=== PATIENT | male | born 1945 | race Caucasian/White ===

== ENCOUNTER 2016-11-19 11:45 | Inpatient (IN) | payer OTHER ==
[~2016-11-19] VITALS: Ht 180.3 cm; Wt 97.8 kg
[2016-11-19] VITALS (26 sets, daily range): BP systolic 89–140; BP diastolic 60–93
--- NOTE | ~2016-11-19 | HC ---
[facility] [place] [address] CONSULTATION Name: CHU HOUGH Room #: 302-P ADM IN M.R.#: [id number] Admission: 11/19/16 Attend Phys: Delta Izaguirre MD Discharge: Date of : 49 Report #: [id number] THIS REPORT FOR: //name// CC: Mervat Delgado DATE OF SERVICE: 11/20/2016 REASON FOR CONSULTATION: Elevated creatinine. HISTORY OF PRESENT ILLNESS: The patient arrives with scanty medical records from a rehabilitation facility and healthcare center where I believe he is a permanent resident. He had a syncopal episode where he fell out of his wheelchair, was found to be hypotensive, taken to the Emergency Room here where he apparently had evidence of UTI and hypotension, was treated in the Emergency Room and admitted to ICU. He gives very little history, although he is awake. PAST MEDICAL HISTORY: Apparently, he had some sort of closed head injury with chronic cognitive disorder rather severe, requiring chronic alf care. According to the scanty records we have, he has chronic lung disease substituted on oxygen, hypertension, type 2 diabetes and had some sort of a bullous skin rash requiring CellCept. HOME MEDICATIONS: Include aspirin 81 mg daily, bupropion 300 mg daily, CellCept 500 mg daily, Depakote 125 mg at bedtime, famotidine 20 mg at bedtime, furosemide 40 mg a.m. and 20 mg p.m., metoprolol succinate 25 mg daily, combination memantine donepezil pill, Mylanta, simvastatin 10 mg daily. According to the patient, he does have an indwelling Juares catheter, but I am not sure how accurate that is and according to what I can see, it looks like he has been in this facility for about 7 months. SOCIAL HISTORY: Otherwise unobtainable. REVIEW OF SYSTEMS: Otherwise unobtainable. FAMILY HISTORY: Otherwise unobtainable. PHYSICAL EXAMINATION: GENERAL: The patient is awake, oriented only to person. SKIN: Shows very erythematous circumferential area of skin which is tender above the ankle and below the knee bilaterally. SKELETAL: Shows him to be well developed, well nourished. HEENT: Extraocular movements are full. Vision appears to be intact, corrective lenses. Hearing appears to be intact. Mucous membranes dry. NECK: Supple. Neck veins are flat. CHEST: Shows some fine crackles. [address] [address] CONSULTATION Name: CHU HOUGH Room #: 302-P [facility] IN M.R.#: [id number] Admission: 11/19/16 Attend Phys: Delta Izaguirre MD Discharge: Date of : 49 Report #: [id number] HEART: Regular. ABDOMEN: Soft and completely nontender, without bruits, masses or organomegaly. EXTREMITIES: Show very trace peripheral edema with the erythematous area. NEUROLOGIC: Shows him to be oriented only to person and to not really be able to answer any other questions with meaningful data. LABORATORY DATA: Sodium 133, potassium 3.4, chloride 98, bicarbonate 21, creatinine 2.9, BUN 69, albumin only 2.2. BNP 61,386. Hemoglobin is 11.8, white count 19.2. He had no bands on differential, platelets 205. Urinalysis showed white cells, red cells and bacteria and 2+ protein. ASSESSMENT AND PLAN: 1. Elevated creatinine. I am going on the assumption if this is all acute possibly related to his urinary tract infection and low blood pressures that IV fluids will need to be maintained. I will check urinary electrolytes for completeness and of course, we will treat his urinary tract infection. 2. Staghorn calculi. He has bilateral staghorn calculi. I suspect he has had longtime indwelling Juares and dehydration and Urology consult will be indicated. Obviously, the urinary tract infection will not be able to be cured until some of these problems are resolved. It certainly could be contributed to his elevated creatinine as well. 3. 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 4. History of hypertension. 5. History of glucose intolerance. 6. History of bullous rash on mycophenolate which will be stopped. <ELECTRONICALLY SIGNED> By: Reyes Castillo MD 11/27/16 0735 0801 1329 Abdiel Negro MD /nt
--- NOTE | ~2016-11-19 | 2DMMODE ---
[facility] [place] [address] [place] [address] 2 D/M-MODE ECHOCARDIOGRAM Name: CHU HOUGH Room #: 302-P ADM IN .R.#: [id number] Admission: 11/19/16 Attend Phys: Duncan Cohen Discharge: Date of : 49 Date of Service: 11/21/16 1253 Report #: [id number] THIS REPORT FOR: //name// APPROVED REPORT Study performed: 11/21/2016 07:37:59 EXAM: Limited 2D, Doppler, and color-flow Echocardiogram Patient Location: Bedside Room #: 242 Blood Pressure: 115/78 mmHg HR: 110 bpm Other Information Study Quality: Poor/undiagnostic Technically limited study due to body habitus, very limited window availability. Indications Congestive Heart Failure Syncope Hx: CHF, DM, HLP Echo Enhancing Agent Indication: Endocardial border delineation Agent/Amount Used: Definity cc Aortic Valve AoV Peak Everette.: 1.37 m/s AO Peak Gr.: 7.48 mmHg Mitral Valve MV Decel. Time: 143.74 ms MV E Max Everette.: 1.12 m/s Left Ventricle Left ventricle is grossly normal size. Regional wall motion is undiagnostic. Suboptimal images. With use of Definity, LV function appears grossly normal This study is not technically sufficient to allow evaluation of the LV diastolic function. Right Ventricle Right ventricle is not well visualized. Right ventricular systolic [facility] [address] [place] [address] 2 D/M-MODE ECHOCARDIOGRAM Name: CHU HOUGH Room #: 302-P ADM IN M.R.#: [id number] Admission: 11/19/16 Attend Phys: Duncan Cohen Discharge: Date of : 49 Date of Service: 11/21/16 1253 Report #: [id number] function could not be assessed. Atria not imaged Right atrium is not well visualized. Aortic Valve The aortic valve is not well visualized. There is no aortic valvular stenosis suspected. Mitral Valve The mitral valve appears grossly normal in structure. Trace mitral regurgitation. Tricuspid Valve Tricuspid valve is not well visualized. Pulmonic Valve Pulmonic valve is not well visualized. Great Vessels Aortic root is not well visualized. The inferior vena cava is not well visualized. Pericardium Probably no effusion. Not well imaged. <Conclusion> Almost uninterpretable study. Suboptimal images. With use of Definity, LV function appears grossly normal Right ventricle is not well visualized. There is no aortic valvular stenosis suspected. The mitral valve appears grossly normal in structure. Probably no effusion. <ELECTRONICALLY SIGNED> By: Yair Cano MD, [facility] 11/21/16 1253 1253 1253 Yair Cano MD, FACC /INF
--- NOTE | ~2016-11-19 | EKG ---
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
--- NOTE | ~2016-11-19 | HC ---
[facility] [place] [address] [place] [address] CONSULTATION Name: CHU HOUGH Room #: 242-P ADM IN M.R.#: [id number] Admission: 11/19/16 Attend Phys: Venkatesh Delgado MD Discharge: Date of : 49 Report #: [id number] THIS REPORT FOR: //name// CC: Mervat Delgado REASON FOR CONSULTATION: I was asked to evaluate concerning septic shock. HISTORY OF PRESENT ILLNESS: The patient is a 70-year-old shelter resident who had a syncopal episode where he fell out of his wheelchair lacerating his left face, chest, and arms. He was brought into the emergency room, found to be febrile, and hypotensive. He received about 3 liters of fluid and placed on Levophed. He was given Zosyn and Levaquin in the emergency room. He was placed on 2 liters of oxygen per nasal cannula. The patient was unable to give any details of his history. ALLERGIES: SULFA. MEDICATIONS: As noted on his MAR, now on vancomycin and Zosyn. PAST MEDICAL HISTORY: Congestive heart failure, hyperlipidemia, gastroesophageal reflux, diabetes, intracranial injury with cognitive defects, anemia, and dyspnea. FAMILY HISTORY: Noncontributory. SOCIAL HISTORY: He is a nonsmoker, no significant alcohol intake. REVIEW OF SYSTEMS: The patient reports back pain. No nausea or vomiting. No diarrhea. He has an indwelling Juares catheter. He has a right upper extremity last evening. He has had no cough or sputum production. PHYSICAL EXAMINATION: VITAL SIGNS: Temperature 99.6, blood pressure 87/71 with a MAP of 77, CVP of 13. GENERAL: He was alert and cooperative. He was unable to rollover in bed on his own, I had to push him over and he resist some. He had laceration to his left forehead. SKIN: Otherwise, unremarkable. LYMPH: Unremarkable. HEENT: Unremarkable. LUNGS: Crackles heard in the bases bilaterally. HEART: Regular, without murmur. ABDOMEN: Firm in the lower abdomen. No appreciable masses or hepatosplenomegaly. GENITOURINARY: External genitalia unremarkable with indwelling Juares catheter. BACK: He had CVA tenderness and lumbar spine tenderness bilateral. [address] [address] CONSULTATION Name: CHU HOUGH Room #: 242-P [facility] IN .R.#: [id number] Admission: 11/19/16 Attend Phys: Venkatesh Delgado MD Discharge: Date of : 49 Report #: [id number] EXTREMITIES: Unremarkable. NEUROLOGIC: Nonfocal. LABORATORY STUDIES: Sodium 133, potassium 3.4, bicarbonate 21, and creatinine 2.9. Liver function tests normal. Albumin at 2.2. Hemoglobin 11.8, white count of 19.2, platelet count 205,000, 87% segs, 0% bands. Procalcitonin was 2.7. Urinalysis positive for wbc's, rbc's and bacteria. Urine culture and blood cultures showing Gram-negative bacilli. CT scan of the abdomen showed some basilar infiltrates, fecal impaction, bladder stone, bilateral staghorn calculi, greatest on the right with evidence of some upper pole pyelonephritis changes. He did have some mild ureteral dilatation and ureteral thickening. IMPRESSION: A 70-year-old shelter resident with septic shock from right pyelonephritis. Question whether he passed the stone and had acute obstruction. He does have staghorn calculi. PLAN: Recommend continuing Gram-negative coverage with Zosyn. Continue with fluids and adjust his antibiotics for his acute renal failure. He will continue with sepsis management in the intensive care unit today. <ELECTRONICALLY SIGNED> By: Ángel Grossman MD 11/21/16 0851 0820 1329 Ángel Grossman MD /nt
[2016-11-19 12:13] LABS: HEMOGLOBIN 12.7 gm/dL (14.0-18.0); MCH 27.4 pg (26.0-34.0); MCHC 32.5 g/dL (28.0-37.0); MCV 84.4 fL (80.0-100.0); PLATELET COUNT 236 thou/uL (150-400); RBC 4.62 mil/uL (4.50-6.00); RDW 18.8 % (10.5-14.5); WBC 18.5 thou/uL (4.0-11.0)
[2016-11-19 12:24] LABS: MANUAL DIFF YES
[2016-11-19 12:25] LABS: ANION GAP 12 mmol/L (7-16); BUN 74 mg/dL (7-18); CALCIUM 8.5 mg/dL (8.5-10.1); CHLORIDE 93 mmol/L (98-107); CO2 22 mmol/L (21-32); CREATININE 3.2 mg/dL (0.7-1.3); GLUCOSE 107 mg/dL (74-106); POTASSIUM 4.1 mmol/L (3.5-5.1); SODIUM 127 mmol/L (136-145)
[2016-11-19 12:26] LABS: ABG SAMPLE TYPE ARTERIAL; BE(vivo) -5.2 mmol/L (-2 to +3); HCO3 17.9 mmol/L (22.0-26.0); LACTATE 1.75 mmol/L (0.5-2.0); O2(CT) 18.3 mL/dL (15.0-23.0); O2Hb 95.7 % (92.0-98.0); PCO2 28.5 mmHg (35.0-45.0); STICK SITE R.RADIAL; pH 7.416 (7.360-7.450); sO2 97.8 % (92.0-98.0); tCO2 18.8 mmol/L (24.0-30.0)
[2016-11-19 12:27] LABS: INR 1.2; PROTIME 12.9 Seconds (9.3-11.4)
[2016-11-19 12:37] LABS: TROPONIN-I < 0.04 ng/mL (<0.04-0.07)
[2016-11-19 12:41] LABS: ABSOLUTE NEUTROPHILS 16.1 thou/uL (1.4-8.2); ANISOCYTOSIS 2+; TOTAL CELL COUNT 100
[2016-11-19 13:05] LABS: NT-PRO BRAIN NAT PEPTIDE 61386 pg/mL (<300)
[2016-11-19] MEDS ORDERED: ASPIR 8181 MG PO (13:15)
[2016-11-19] MEDS ORDERED: BISACODYL SUPP10 MG RECTAL (13:15)
[2016-11-19] MEDS ORDERED: ARTIFICIAL TEA1 EACH OP (13:15)
[2016-11-19] MEDS ORDERED: A+D ZINC OXIDE113 GM TP (13:15)
[2016-11-19] MEDS ORDERED: CELLCEPT500 MG PO (13:16)
[2016-11-19] MEDS ORDERED: WELLBUTRIN XL300 MG PO (13:16)
[2016-11-19] MEDS ORDERED: CERAVE237 ML TP (13:16)
[2016-11-19 13:17] LABS: URINE BILIRUBIN NEGATIVE (Negative); URINE BLOOD 3+ (Negative); URINE COLOR YELLOW; URINE GLUCOSE-RANDOM* NEGATIVE (Negative); URINE KETONES NEGATIVE (Negative); URINE NITRITE NEGATIVE (Negative); URINE PROTEIN (DIPSTICK) 2+ (Negative); URINE SPECIFIC GRAVITY 1.015 (1.003-1.035)
[2016-11-19] MEDS ORDERED: PEPCID20 MG PO (13:17)
[2016-11-19] MEDS ORDERED: NEURONTIN 300300 M1 PO (13:17)
[2016-11-19] MEDS ORDERED: LASIX 40 MG TAB40 M2 PO (13:17)
[2016-11-19] MEDS ORDERED: DEPAKOTE 250MG250 M1 PO (13:17)
[2016-11-19] MEDS ORDERED: TOPROL XL25 MG PO (13:17)
[2016-11-19] MEDS ORDERED: NAMZARIC 14 MG1 EACH PO (13:18)
[2016-11-19] MEDS ORDERED: ROBITUSSIN100 MG/53 PO (13:18)
[2016-11-19] MEDS ORDERED: ZOCOR20 MG PO (13:18)
[2016-11-19] MEDS ORDERED: PAIN RELIEF325 MG PO (13:19)
[2016-11-19] MEDS ORDERED: ULTRAM50 MG PO (13:19)
[2016-11-19] MEDS ORDERED: VOLTAREN GEL 1100 G2 TOP (13:19)
[2016-11-19 13:37] LABS: BACTERIA >30 Many /HPF (None Seen); CASTS None Seen /LPF (None Seen); CRYSTALS None Seen /LPF (None Seen); SQUAMOUS None Seen /LPF (0-3); URINE RBC >20 Many /HPF (0-2); URINE WBC >25 Many /HPF (0-5)
[2016-11-19 19:47] LABS: CALCIUM 7.9 mg/dL (8.5-10.1); POTASSIUM 3.6 mmol/L (3.5-5.1)
[2016-11-20] VITALS (49 sets, daily range): BP systolic 81–117; BP diastolic 53–81
[2016-11-20 05:01] LABS: HEMATOCRIT 36.5 % (42.0-52.0); HEMOGLOBIN 11.8 gm/dL (14.0-18.0); MCH 27.2 pg (26.0-34.0); MCHC 32.2 g/dL (28.0-37.0); MCV 84.3 fL (80.0-100.0); RBC 4.33 mil/uL (4.50-6.00); RDW 18.3 % (10.5-14.5); WBC 19.2 thou/uL (4.0-11.0)
[2016-11-20 05:15] LABS: ALBUMIN 2.2 g/dL (3.4-5.0); CALCIUM 8.8 mg/dL (8.5-10.1); CREATININE 2.9 mg/dL (0.7-1.3); POTASSIUM 3.4 mmol/L (3.5-5.1); TOTAL BILIRUBIN 1.1 mg/dL (<0.1-1.0); TOTAL PROTEIN 6.5 g/dL (6.4-8.2)
[2016-11-20 14:43] LABS: ALBUMIN 2.2 g/dL (3.4-5.0); CALCIUM 8.6 mg/dL (8.5-10.1); CREATININE 2.9 mg/dL (0.7-1.3); PHOSPHORUS 4.5 mg/dL (2.5-4.9); POTASSIUM 3.8 mmol/L (3.5-5.1)
[2016-11-21] VITALS (9 sets, daily range): BP systolic 102–132; BP diastolic 77–89
[2016-11-21 05:40] LABS: ALBUMIN 2.2 g/dL (3.4-5.0); CALCIUM 8.9 mg/dL (8.5-10.1); CREATININE 2.8 mg/dL (0.7-1.3); POTASSIUM 3.3 mmol/L (3.5-5.1)
[2016-11-22 04:09] VITALS: BP 121/75
[2016-11-22 05:13] LABS: HEMATOCRIT 38.4 % (42.0-52.0); HEMOGLOBIN 12.4 gm/dL (14.0-18.0); MCH 27.8 pg (26.0-34.0); MCHC 32.4 g/dL (28.0-37.0); MCV 85.7 fL (80.0-100.0); PLATELET COUNT 224 thou/uL (150-400); RBC 4.48 mil/uL (4.50-6.00); RDW 19.4 % (10.5-14.5); WBC 10.3 thou/uL (4.0-11.0)
[2016-11-22 05:17] LABS: MANUAL DIFF YES
[2016-11-22 05:40] LABS: ALBUMIN 2.4 g/dL (3.4-5.0); CALCIUM 8.9 mg/dL (8.5-10.1); CREATININE 2.9 mg/dL (0.7-1.3); POTASSIUM 3.7 mmol/L (3.5-5.1)
[2016-11-22 06:25] LABS: ANISOCYTOSIS 2+; MACROCYTES 1+; MICROCYTES 1+; TOTAL CELL COUNT 100
[2016-11-22 06:26] LABS: POLYCHROMASIA 1+; TOXIC GRANULATION 1+
[2016-11-22 08:38] VITALS: BP 123/87
[2016-11-22 16:52] VITALS: BP 112/86
[2016-11-22 20:00] VITALS: BP 123/83
[2016-11-23 05:30] VITALS: BP 101/71
[2016-11-23 05:48] LABS: BASOPHILS 0.7 % (0.0-2.0); EOSINOPHILS 8.1 % (0.0-3.0); HEMATOCRIT 39.8 % (42.0-52.0); HEMOGLOBIN 12.6 gm/dL (14.0-18.0); LYMPHOCYTES 13.1 % (24.0-44.0); MCH 27.7 pg (26.0-34.0); MCHC 31.5 g/dL (28.0-37.0); MCV 87.9 fL (80.0-100.0); MONOCYTES 7.8 % (1.0-8.0); PLATELET COUNT 197 thou/uL (150-400); POLYS 70.3 % (36.0-66.0); RBC 4.53 mil/uL (4.50-6.00); RDW 19.5 % (10.5-14.5); WBC 9.9 thou/uL (4.0-11.0)
[2016-11-23 05:53] LABS: MANUAL DIFF NO
[2016-11-23 05:59] LABS: CALCIUM 8.5 mg/dL (8.5-10.1); CREATININE 2.8 mg/dL (0.7-1.3); POTASSIUM 3.4 mmol/L (3.5-5.1)
[2016-11-23 10:10] VITALS: BP 102/66
[2016-11-23 11:40] VITALS: BP 103/68
[2016-11-23 16:30] VITALS: BP 104/67
[2016-11-23 19:40] VITALS: BP 94/68
[2016-11-24 03:55] VITALS: BP 101/60
[2016-11-24 07:33] VITALS: BP 82/57
[2016-11-24 07:41] LABS: ABSOLUTE NEUTROPHILS 6.8 thou/uL (1.4-8.2); BASOPHILS 0.5 % (0.0-2.0); EOSINOPHILS 9.5 % (0.0-3.0); HEMOGLOBIN 12.4 gm/dL (14.0-18.0); LYMPHOCYTES 15.1 % (24.0-44.0); MCH 27.5 pg (26.0-34.0); MCV 88.9 fL (80.0-100.0); MONOCYTES 8.1 % (1.0-8.0); PLATELET COUNT 184 thou/uL (150-400); POLYS 66.8 % (36.0-66.0); RDW 19.1 % (10.5-14.5); WBC 10.2 thou/uL (4.0-11.0)
[2016-11-24 07:44] LABS: MANUAL DIFF NO
[2016-11-24 07:48] LABS: CALCIUM 8.3 mg/dL (8.5-10.1); POTASSIUM 3.6 mmol/L (3.5-5.1)
[2016-11-24 15:00] VITALS: BP 90/56
[2016-11-24 20:24] VITALS: BP 77/54
[2016-11-24 21:00] VITALS: BP 96/64
[2016-11-25] VITALS (8 sets, daily range): BP systolic 73–91; BP diastolic 50–61
[2016-11-25 07:43] LABS: ALBUMIN 1.9 g/dL (3.4-5.0); CREATININE 3.3 mg/dL (0.7-1.3); PHOSPHORUS 5.6 mg/dL (2.5-4.9); POTASSIUM 3.6 mmol/L (3.5-5.1)
[2016-11-25 15:51] LABS: HEMATOCRIT 31.2 % (42.0-52.0); MCH 28.2 pg (26.0-34.0); MCHC 31.7 g/dL (28.0-37.0); MCV 88.9 fL (80.0-100.0); RBC 3.51 mil/uL (4.50-6.00); RDW 19.1 % (10.5-14.5); WBC 9.2 thou/uL (4.0-11.0)
[2016-11-25 15:59] LABS: HEMOGLOBIN 9.9 gm/dL (14.0-18.0)
[2016-11-25 22:55] LABS: HEMATOCRIT 39.9 % (42.0-52.0); MCH 27.2 pg (26.0-34.0); MCHC 30.5 g/dL (28.0-37.0); RBC 4.48 mil/uL (4.50-6.00); RDW 19.3 % (10.5-14.5); WBC 11.1 thou/uL (4.0-11.0)
[2016-11-25 23:00] LABS: HEMOGLOBIN 12.2 gm/dL (14.0-18.0)
[2016-11-26 04:00] VITALS: BP 87/61
[2016-11-26 05:24] LABS: HEMATOCRIT 38.3 % (42.0-52.0); HEMOGLOBIN 11.9 gm/dL (14.0-18.0); MCH 27.5 pg (26.0-34.0); MCV 88.9 fL (80.0-100.0); RBC 4.31 mil/uL (4.50-6.00); RDW 18.9 % (10.5-14.5); WBC 10.4 thou/uL (4.0-11.0)
[2016-11-26 05:40] LABS: CALCIUM 7.8 mg/dL (8.5-10.1); CREATININE 3.5 mg/dL (0.7-1.3); POTASSIUM 3.7 mmol/L (3.5-5.1)
[2016-11-26 07:30] VITALS: BP 92/57
[2016-11-26 12:00] VITALS: BP 98/71
[2016-11-26 16:30] VITALS: BP 91/61
[2016-11-26 19:20] VITALS: BP 97/62
[2016-11-27 03:25] VITALS: BP 101/61
[2016-11-27 07:30] VITALS: BP 102/71
[2016-11-27 07:56] LABS: HEMATOCRIT 39.2 % (42.0-52.0); HEMOGLOBIN 12.2 gm/dL (14.0-18.0); MCH 27.4 pg (26.0-34.0); MCHC 31.2 g/dL (28.0-37.0); RBC 4.45 mil/uL (4.50-6.00); RDW 19.2 % (10.5-14.5); WBC 8.1 thou/uL (4.0-11.0)
[2016-11-27 08:08] LABS: CALCIUM 7.9 mg/dL (8.5-10.1); CREATININE 3.6 mg/dL (0.7-1.3); PHOSPHORUS 6.3 mg/dL (2.5-4.9); POTASSIUM 3.8 mmol/L (3.5-5.1)
[2016-11-27 15:30] VITALS: BP 95/61
[2016-11-27 20:00] VITALS: BP 95/61; BP 96/65
[2016-11-28 04:00] VITALS: BP 95/59
[2016-11-28 06:42] LABS: HEMATOCRIT 34.4 % (42.0-52.0); HEMOGLOBIN 10.9 gm/dL (14.0-18.0); MCH 27.9 pg (26.0-34.0); MCHC 31.7 g/dL (28.0-37.0); MCV 88.1 fL (80.0-100.0); RBC 3.9 mil/uL (4.50-6.00); RDW 18.6 % (10.5-14.5); WBC 8.1 thou/uL (4.0-11.0)
[2016-11-28 07:09] LABS: ALBUMIN 1.9 g/dL (3.4-5.0); CALCIUM 7.7 mg/dL (8.5-10.1); CREATININE 3.8 mg/dL (0.7-1.3); PHOSPHORUS 5.8 mg/dL (2.5-4.9)
[2016-11-28 07:23] VITALS: BP 102/67
[2016-11-28 11:45] LABS: URINE BILIRUBIN NEGATIVE (Negative); URINE BLOOD 1+ (Negative); URINE COLOR YELLOW; URINE GLUCOSE-RANDOM* NEGATIVE (Negative); URINE KETONES NEGATIVE (Negative); URINE LEUKOCYTES-REFLEX 2+ (Negative); URINE PROTEIN (DIPSTICK) TRACE (Negative); URINE UROBILINOGEN 0.2 E.U./dl (0.2-1.0)
[2016-11-28 12:13] LABS: SQUAMOUS None Seen /LPF (0-3)
[2016-11-28 12:14] LABS: CASTS None Seen /LPF (None Seen); CRYSTALS None Seen /LPF (None Seen); URINE RBC 3-10 Few /HPF (0-2)
[2016-11-28 12:15] LABS: URINE WBC-REFLEX >25 Many /HPF (0-5)
[2016-11-28 16:45] VITALS: BP 119/72
[2016-11-28 20:00] VITALS: BP 113/76
[2016-11-28 22:57] VITALS: BP 113/76
[2016-11-29 03:30] VITALS: BP 92/69
[2016-11-29 05:26] LABS: CALCIUM 7.8 mg/dL (8.5-10.1); CREATININE 3.5 mg/dL (0.7-1.3); PHOSPHORUS 4.9 mg/dL (2.5-4.9); POTASSIUM 4.2 mmol/L (3.5-5.1)
[2016-11-29 07:35] VITALS: BP 115/79
[2016-11-29 08:00] VITALS: BP 115/79
[2016-11-29] MEDS ORDERED: DUONEB 2.5-0.5 M3 ML INH (12:26)
[2016-11-29] MEDS ORDERED: AUGMENTIN 875875 MG PO (12:27)
[2016-11-29] MEDS ORDERED: RENVELA800 MG PO (12:27)
== END 2016-11-29 16:44 | DRG 871 ==
LOC: ER 11:45 → ICU 15:12 → 3N 15:12 → EROBS 15:12 → ICU 17:22 → 3N 11-21 12:41
PROVIDERS: Emergency Medicine; Hospitalist; Internal Medicine Endocrinology, Diabetes & Metabolism; Internal Medicine Nephrology; Nurse Practitioner; Specialist
PROC: 02HV33Z Insertion of Infusion Device into Superior Vena Cava, Percutaneous Approach (ICD-10-PCS; principal; 2016-11-19)
PROC: B548ZZA Ultrasonography of Superior Vena Cava, Guidance (ICD-10-PCS; principal; 2016-11-19)
DX: A41.9 Sepsis, unspecified organism (principal); R65.21 Severe sepsis with septic shock; N17.9 Acute kidney failure, unspecified; E87.1 Hypo-osmolality and hyponatremia; N39.0 Urinary tract infection, site not specified; I13.0 Hypertensive heart and chronic kidney disease with heart failure and stage 1 through stage 4 chronic kidney disease, or unspecified chronic kidney disease; E44.0 Moderate protein-calorie malnutrition; K21.9 Gastro-esophageal reflux disease without esophagitis; F39 Unspecified mood [affective] disorder; E78.5 Hyperlipidemia, unspecified; E87.6 Hypokalemia; E11.22 Type 2 diabetes mellitus with diabetic chronic kidney disease; N18.9 Chronic kidney disease, unspecified; I50.9 Heart failure, unspecified; I95.9 Hypotension, unspecified; F09 Unspecified mental disorder due to known physiological condition; N20.0 Calculus of kidney; N21.0 Calculus in bladder; R13.10 Dysphagia, unspecified; R41.89 Other symptoms and signs involving cognitive functions and awareness; E86.0 Dehydration; F03.90 Unspecified dementia, unspecified severity, without behavioral disturbance, psychotic disturbance, mood disturbance, and anxiety; Z79.82 Long term (current) use of aspirin; Z79.899 Other long term (current) drug therapy; Z68.30 Body mass index [BMI] 30.0-30.9, adult; Z88.2 Allergy status to sulfonamides; Z88.8 Allergy status to other drugs, medicaments and biological substances; Z23 Encounter for immunization
CPT/HCPCS: 10078; 10096; 10795; 27000